=== PATIENT | female | born 2000 | race Caucasian/White ===

== ENCOUNTER 2023-05-16 18:56 | Emergency (ER) | payer OTHER, SELFPAY ==
[2023-05-16] VITALS (11 sets, daily range): BP systolic 103–138; BP diastolic 61–93; PULSE 57–100; RESP 14–20; TEMP 36.7; O2SAT 98–99
--- NOTE | ~2023-05-16 | XR_ITS ---
EXAMINATION: XR chest 2V DATE: 05/16/2023 19:44 INDICATION: 2 weeks of intermittent chest pain TECHNIQUE: PA and lateral views of the chest were obtained. COMPARISON: None FINDINGS: The lungs are clear with no focal airspace opacities, pulmonary edema, pleural effusion or pneumothor ax. The cardiomediastinal silhouette is normal. 14 degrees upper thoracic levoscoliosis.. IMPRESSION: 1. No acute cardiopulmonary disease. Reviewed, dictated and finalized at location A.
--- NOTE | 2023-05-16 18:57 | ECG_ITS ---
Measurements Intervals [place] Rate: 69 P: 51 NV: 138 QRS: 59 QRSD: 94 T: 43 QT: 418 QTc: 448 Interpretive Statements SINUS RHYTHM WITH MARKED SINUS ARRHYTHMIA POSSIBLE LEFT ATRIAL ENLARGEMENT BORDERLINE ECG NO PREVIOUS ECG AVAILABLE FOR COMPARISON Electronically Signed On 05-17-2023 7:42:26 CDT by Emmanuel Hardin D.O.
[2023-05-16 19:40] LABS: Basophils Absolute Auto 0.1 K/mm3 (0.0-0.1); Basophils Percent Auto 0.3 % (0.2-1.2); Hematocrit 42.5 % (37.0-47.0); Hemoglobin 14.6 g/dL (12.0-15.0); Immature Granulocyte Absolute 0.07 K/mm3 (0.00-0.031); Immature Granulocyte Percent A 0.4 % (0-0.5); Lymphocytes Absolute Auto 2.57 K/mm3 (0.9-3.2); Lymphocytes Percent Auto 14.4 % (18.3-44.2); Mean Corpuscular HGB Conc 34.4 g/dl (32-36); Mean Corpuscular Hemoglobin 32.4 pg (26-34); Mean Corpuscular Volume 94.2 fl (80-100); Mean Platelet Volume 8.5 fl (7.4-10.4); Monocytes Absolute Auto 0.9 K/mm3 (0.1-0.6); Monocytes Percent Auto 4.7 % (2.6-8.5); Neutrophils Absolute Auto 14.4 K/mm3 (1.3-6.7); Neutrophils Percent Auto 80.2 % (45.5-73.1); Platelet Count Result 431 k/mm3 (150-375); Red Blood Count 4.51 M/mm3 (4.2-5.4); Red Cell Distribution Width 12.2 % (11.5-14.5); White Blood Count 17.9 K/mm3 (4.5-10.0)
[2023-05-16] MEDS: ASPIRIN 81 MG CHEWABLE TABLET 324 MG PO (19:44)
[2023-05-16 19:50] LABS: Partial Thromboplastin Time 29.7 SECONDS (22.3-36.8); Prothrombin Time 13.7 Seconds (11.1-14.7)
[2023-05-16 19:55] LABS: Alanine Aminotransferase 27 U/L (6-35); Albumin Level 4.9 g/dL (3.5-5.1); Alkaline Phosphatase 85 U/L (38-126); Anion Gap 12 mmol/L (8-16); Aspartate Amino Transferase 33 U/L (14-36); Bilirubin,Total 0.7 mg/dL (0.2-1.3); Blood Urea Nitrogen 13 mg/dL (7-17); Calcium 9.5 mg/dL (8.4-10.2); Carbon Dioxide 22 mmol/L (22-30); Chloride 104 mmol/L (98-107); Estimated CRCL calculation 110 ml/min; Estimated Glomerular Filt Rate > 60; Glucose 83 mg/dL (65-110); Lipase 39 U/L (23-300); Potassium 3.6 mmol/L (3.4-5.0); Sodium 138 mmol/L (137-145)
[2023-05-16 20:07] LABS: Troponin I < 0.012 ng/mL (0.000-0.034)
--- NOTE | 2023-05-16 20:09 | ED.GENADULT ---
HPI - General Adult General Chief complaint: Chest Pain Stated complaint: Chest pains Time Seen by Provider: 05/16/23 19:45 History of Present Illness HPI narrative: Patient a 23-year-old female who presents the emergency department with chief complaint of palpitations and chest discomfort. Patient reports that she has prior history of dysrhythmias of which she states she has had both sinus tachycardia and ventricular tachycardia. The patient reports that she was on a beta-brian for some time and reports that she was able to come off of the beta-brian and has not seen a investment manager in several years the patient states that things were done at [facility] and reports that she did not have a AICD or pacer implanted patient reports did not wear a LifeVest and has not been on any specific antidysrhythmic's other than a beta-brian. Patient reports that she has been noticing that her heart rates been going fast at times and fluctuating Related Data Allergies Allergy/AdvReac Type Severity Reaction Status Date / Time metoclopramide [From Reglan] Allergy Rash Verified 05/16/23 19:33 Sulfa (Sulfonamide Allergy Rash Verified 05/16/23 19:33 Antibiotics) Review of Systems Review of Systems: A 10 system review of systems was completed on the patient and is negative except for what is stated in the HPI. Nursing and ancillary documentation was reviewed. Exam Narrative: GENERAL: Well-appearing, well-nourished, and in no acute distress. HEAD: Normocephalic, atraumatic. EYES: PERRLA and EOMI. ENT: Nares clear, no rhinorrhea or epistaxis. Mucous membranes moist. NECK: Supple. CHEST: Clear to auscultation. No respiratory distress. HEART: Regular rate and rhythm. No murmur heard. Normal peripheral pulses. ABDOMEN: Soft, nontender, nondistended, normal active bowel sounds. EXTREMITIES: Normal range of motion. No edema. SKIN: Warm, dry, no rash. NEURO: No focal deficits. Alert and oriented x3. PSYCH: Normal mood and affect. Course Vital Signs Vital signs: Vital Signs Temperature 36.7 C 05/16/23 19:05 Pulse Rate 57 L 05/16/23 19:05 Respiratory Rate 16 05/16/23 19:05 Blood Pressure 123/77 05/16/23 19:05 Pulse Oximetry 99 05/16/23 19:05 Oxygen Delivery Room Air 05/16/23 19:05 Temperature 36.7 C 05/16/23 19:05 Pulse Rate 66 05/17/23 00:30 Respiratory Rate 13 05/17/23 00:30 Blood Pressure 120/76 05/17/23 00:30 Pulse Oximetry 98 05/17/23 00:30 Oxygen Delivery Room Air 05/16/23 20:00 Medical Decision Making MDM Narrative Medical decision making narrative: Differential diagnosis includes dysrhythmia, electrolyte abnormality, ACS Initial EKG showed no evidence of acute ischemic changes Laboratory studies were obtained which showed a white count of 17.9 electrolytes are within normal limits troponin was negative for the 0-hour and 3-hour TSH was within normal limits magnesium was 2.0 Chest x-ray shows no focal infiltrate Attempts were made to obtain records from [facility] which did not have any additional information At this time the patient has been hemodynamically stable in the emergency department and will be discharged to follow-up with primary care and may need a Holter monitor as an outpatient Vital Signs Vital Signs: Vital Signs Temperature 36.7 C 05/16/23 19:05 Pulse Rate 57 L 05/16/23 19:05 Respiratory Rate 16 05/16/23 19:05 Blood Pressure 123/77 05/16/23 19:05 Pulse Oximetry 99 05/16/23 19:05 Oxygen Delivery Room Air 05/16/23 19:05 Temperature 36.7 C 05/16/23 19:05 Pulse Rate 66 05/17/23 00:30 Respiratory Rate 13 05/17/23 00:30 Blood Pressure 120/76 05/17/23 00:30 Pulse Oximetry 98 05/17/23 00:30 Oxygen Delivery Room Air 05/16/23 20:00 Lab Data 05/16/23 19:34 05/16/23 19:34 Labs: Lab Results 05/16/23 05/16/23 Range/Units 19:34 23:33 WBC 17.9 H (4.5-10.0) K/mm3
[2023-05-16 21:13] LABS: D Dimer 0.45 ug/mL (<0.48)
[2023-05-17 00:19] LABS: Troponin I < 0.012 ng/mL (0.000-0.034)
[2023-05-17 00:30] VITALS: BP 120/76; PULSE 66; RESP 13; O2SAT 98
[2023-05-17 00:48] VITALS: BP 112/79; PULSE 70; RESP 17; O2SAT 99
== END 2023-05-17 00:50 | disposition home or self-care (01) ==
PROVIDERS: Emergency Medicine; Emergency Provider Emergency Medicine
DX: R00.2 Palpitations (principal); R07.89 Other chest pain
CPT/HCPCS: 36415; 71046; 80053; 83690; 83735; 84443; 84484; 85025; 85380; 85610; 85730; 93005; 99284; A9270